=== PATIENT | female | born 1990 | race Two or more races ===

== ENCOUNTER 2021-05-10 13:08 | Emergency (ER) | payer BC, OTHER ==
[~2021-05-10] VITALS: Ht 152.4 cm; Wt 54.4 kg
[2021-05-10 14:24] VITALS: BP 130/84
[2021-05-10] MEDS ORDERED: DOXY-286 PO (14:34)
== END 2021-05-10 14:46 | disposition home or self-care (01) ==
LOC: ER 13:08
DX: S30.854A Superficial foreign body of vagina and vulva, initial encounter (principal); X58.XXXA Exposure to other specified factors, initial encounter; Y93.89 Activity, other specified; Y92.89 Other specified places as the place of occurrence of the external cause; Y99.8 Other external cause status

== ENCOUNTER 2021-07-20 04:11 | Emergency (ER) | payer BC ==
[~2021-07-20] VITALS: Ht 152.4 cm; Wt 59.0 kg
[~2021-07-20 04:11] MED LIST: DOXY-286 PO
[2021-07-20] MEDS ORDERED: METR500T PO (06:44)
[2021-07-20 06:45] VITALS: BP 116/59
== END 2021-07-20 06:50 | disposition home or self-care (01) ==
LOC: ER 04:11
DX: N76.0 Acute vaginitis (principal)